=== PATIENT | female | born 1980 | race Caucasian/White ===

== ENCOUNTER 2023-03-23 05:17 | Emergency (ER) | payer OTHER, SELFPAY ==
[2023-03-23 05:26] VITALS: BP 140/88
--- NOTE | 2023-03-23 06:28 | ED.GENMED ---
History of Present Illness
General
Chief Complaint: Vomiting Blood
Source: patient
Exam Limitations: none
Time Seen by Provider: 03/23/23 06:21
Travel History
Have you had any contact with someone who has COVID-19?: No
Do you have any symptoms of coronavirus? Fever > 100 degrees, chills, cough, shortness of breath, sore throat, loss of taste or smell, muscle aches, or headache?: No
History of Present Illness
History of Present Illness:
See MDM
Past History
Past History
ED Past Medical History: Asthma, HTN and Other (Migraines, anxiety, morbid obesity ,rectal bleeding, Ulceration of the esophagus)
ED Past Surgical History: Gynecological (LEEP) and Orthopedic
Patient has exhibited threatening behavior?: No
Social History
Tobacco: Non-smoker
Alcohol: Occasional
Drug: None
Personal: Single
Living: with roommate (boyfriend)
Employment: Employed (bilingual medical receptionist for doctor office)
Family History
Family History: Other (Noncontributory)
Phy Exam
Physical Exam
Physical Exam:
See MDM
Course
Orders/Labs/Results
Orders:
Orders
03/23/23 06:27
0.9% Sodium Chloride 1000 ml [Nss] 1,000 ml IV BOLUS
Ondansetron Injectable [Zofran] 4 mg IV NOW STA
Pantoprazole [Protonix IV] 40 mg IV NOW STA
03/23/23 06:34
Sucralfate Suspension [Carafate Suspension] 1 gm PO NOW STA
03/23/23 06:58
Complete Blood Count/With Diff Urgent
Comprehensive Metabolic Panel Urgent
Abnormal Lab Results
03/23/23
06:58
WBC 11.1 H 10^3/uL
(4.8-10.8)
MCH 26.9 L pg
(27.0-31.0)
MCHC 32.1 L g/dL
(33.0-37.0)
MPV 10.9 H fL
(7.4-10.4)
Abs Immat Gran (auto) 0.1 H 10^3/uL
(0-0.05)
Absolute Neuts (auto) 8.8 H 10^3/uL
(1.4-6.5)
Absolute Monos (auto) 0.7 H 10^3/uL
(0.1-0.6)
Immature Gran % 0.6 H %
(0-0.5)
Neutrophils % 79.4 H %
(42.2-75.2)
Lymphocytes % 10.4 L %
(20.5-51.1)
Glucose 130 H mg/dl
(70-99)
03/23/23 06:58
03/23/23 06:58
Vital Signs
Initial and Last Documented VS:
Initial Vital Signs
Temp Pulse Resp BP Pulse Ox
98 F 90 18 140/88 98
03/23/23 05:26 03/23/23 05:26 03/23/23 05:26 03/23/23 05:26 03/23/23 05:26
Last Documented Vital Signs
Temp Pulse Resp BP Pulse Ox
98 F 90 18 111/69 95
03/23/23 05:26 03/23/23 05:26 03/23/23 05:26 03/23/23 08:00 03/23/23 08:45
MDM/Problems Addressed
Differential Diagnosis Includes:
HPI and MDM Narrative:
42-year-old female presenting with nausea and vomiting. She had 4 episodes of coffee-ground emesis. Patient states she is feeling better and would not, and other than the vomiting. She denies abdominal pain. She is not on blood thinners.
Patient states that she had an issue like this last year where she had endoscopy. Symptoms resolved with Protonix and Carafate. She is no longer on those medicines.
On exam, she is well-appearing and nontoxic. She is a soft nontender abdomen
I evaluated prior records. She had EGD last July showing evidence of esophagitis without active bleeding. Patient believes that her symptoms today are less intense than last year. She is trying to get a 'jumpstart' on her symptoms today. She
believes that she is able to go home. We had a long discussion about admission versus discharge. She acknowledges the concerns of going home. Although her symptoms are likely again related to esophagitis, I discussed alternative diagnoses such as
ulcerations and varices.
Physical exam
General: Well appearing and non-toxic
HEENT: protecting airway. Mildly dry mucous membranes
Neck: appears supple
CV: No evidence of cyanosis
Resp: No accessory muscle use
Abd: Non-distended. Soft and nontender
Extremities: No deformities
Neuro: alert
Psych: Normal affect
Skin: Intact
Problems Addressed including Acute and Chronic Conditions affecting care:
1. Hematemesis
Acuity: acute
Prognosis: stable
Details: Will restart Protonix and Carafate
Updates
Hemoglobin within normal limits. Patient has not had vomiting in the emergency department. Patient states she wants to go home. Will restart Protonix and Carafate. Discussed calling GI as an outpatient
Differential Diagnosis (but not limited to): Esophagitis, gastric ulcer, esophageal varices
Testing considered: CT abdomen/pelvis
Drug therapy (if applicable): OTC meds, please see d/c instruction regarding Rx drugs
Amount and/or Complexity of Data Reviewed
Clinical info obtained from: Patient
External data reviewed: Admitted last July for similar issues and had EGD showing esophagitis
Labs I independently reviewed (but not limited to): Hemoglobin normal
Radiology: N/A
Pulse Ox: not hypoxic
EKG independently reviewed: N/A
Red Lead Burner: N/A
Critical Care: N/A
Risk of Complication:
Social Determinants of health: Good social support
Discussed with other providers: N/A
Escalation of Care includes Admit/Obs: After being observed in the Emergency Department, pt stable for discharge.
Occasional wrong word or 'sound a like' substitutions may have occurred due to the inherent limitations of voice recognition software. Read the chart carefully and recognize, using context, where substitutions have occurred.
*Critical Care Note
Total Time (30-74mins, 75-104mins- exclusive of procedures): Not Applicable
ED Attending Note
-
Portions of this chart may have been created with voice recognition software.� Occasional wrong word or��sound alike� substitutions may have occurred due to the inherent limitations of voice recognition software.
Discharge Plan
Departure
Patient Disposition: Home (Routine Discharge)
Date of Disposition: 03/23/23
Time of Disposition: 09:06
Patient with high blood pressure during this ER visit?: No
Discharge Problem:
Hematemesis
Prescriptions:
New
pantoprazole [Protonix] 40 mg tablet,delayed release (DR/EC)
40 mg PO BID Qty: 60 0RF
sucralfate [Carafate] 1 gram tablet
1 g PO ACHS Qty: 60 0RF
No Action
albuterol sulfate 1 PUFF HFA aerosol inhaler
2 puff inhalation R [id number] PRN (Reason: sob)
Janumet XR 50-1,000 mg Tablet, Er Multiphase 24 Hr
2 tab PO DAILY
Patient Comments:
patient logged into her health portal for [employer]
Trintellix 10 mg Tablet
10 mg PO DAILY
Patient Comments:
patient logged into health portal for [employer]
lisinopril 5 mg Tablet
5 mg PO DAILY
Referrals:
Sammie Everett MD [Family Provider] -
Activity Restrictions/Additional Instructions:
Please restart the Protonix and Carafate. If symptoms persist, please return immediately. Call the gastroenterology office and let them know that your symptoms are recurred.
Interventions
Interventions:
*Risk Screen - Suicide Last Done: 03/23/23 05:26
*General Assessment Last Done: 03/23/23 06:52
*Neglect/Abuse Screening Last Done: 03/23/23 05:26
ED- Fall Risk Assessment Last Done: 03/23/23 06:52
*ED COVID-19 Vaccine History Last Done: 03/23/23 06:52
DC-Qsqrrz-Auhrqxkwhx Assessment Last Done: 03/23/23 06:52
ED- Cardiac Assessment Last Done: 03/23/23 06:52
ED- Pulmonary Assessment Last Done: 03/23/23 06:52
[2023-03-23 06:52] VITALS: BMI 48.2
[2023-03-23] MEDS: NSS 1000 IV (07:21)
[2023-03-23] MEDS: ZOFRAN 4 MG IV (07:22)
[2023-03-23] MEDS: PROTONIX IV 40 MG IV (07:22)
[2023-03-23] MEDS: CARAFATE SUSPENSION 1 GM PO (07:22)
[2023-03-23 07:26] LABS: % Basophils 0.7 % (0-2); % Eosinophils 2.8 % (0-6); % Immature Granulocytes 0.6 % (0-0.5); % Lymphocytes 10.4 % (20.5-51.1); % Monocytes 6.1 % (1.7-9.3); % Neutrophils 79.4 % (42.2-75.2); Absolute Basophils 0.1 10^3/uL (0-0.2); Absolute Eosinophils 0.3 10^3/uL (0-0.7); Absolute Immature Granulocytes 0.1 10^3/uL (0-0.05); Absolute Lymphocytes 1.2 10^3/uL (1.2-3.4); Absolute Monocytes 0.7 10^3/uL (0.1-0.6); Absolute Neutrophils 8.8 10^3/uL (1.4-6.5); Hematocrit 37.7 % (37.0-47.0); Hemoglobin 12.1 g/dL (12.0-16.0); Mean Corp Hgb Conc. 32.1 g/dL (33.0-37.0); Mean Corpuscular Hgb 26.9 pg (27.0-31.0); Mean Platelet Volume 10.9 fL (7.4-10.4); Nucleated Red Blood Cells % 0 %; Platelet Count 346 10^3/uL (130-400); Red Blood Cell Count 4.49 10^6/uL (4.20-5.40); Red Cell Dist. Width 13.7 % (11.5-14.5); White Blood Cell Count 11.1 10^3/uL (4.8-10.8)
[2023-03-23 07:43] LABS: ALT (SGPT) 32 U/L (0-35); AST (SGOT) 23 U/L (14-36); Alkaline Phosphatase 92 U/L (38-126); Blood Urea Nitrogen 14 mg/dl (7-17); Calcium 9.2 mg/dl (8.4-10.2); Carbon Dioxide 28 mmol/L (22-30); Chloride 100 mmol/L (98-107); Estimated Creatinine Clearance > 125 ml/min; Glucose 130 mg/dl (70-99); Potassium 4.3 mmol/L (3.5-5.1); Sodium 135 mmol/L (135-145); Total Bilirubin 0.4 mg/dl (0.2-1.3); Total Protein 6.4 g/dl (6.3-8.2); eGFR > 60.00
[2023-03-23 08:00] VITALS: BP 111/69
[2023-03-23 09:00] VITALS: BP 96/64
== END 2023-03-23 09:20 | disposition home or self-care (01) ==
LOC: EMR 05:17
PROVIDERS: EMERGENCY PHYSICIAN Student in an Organized Health Care Education/Training Program; FAMILY PHYSICIAN Family Medicine
DX: K92.0 Hematemesis (principal); J45.909 Unspecified asthma, uncomplicated; I10 Essential (primary) hypertension; F41.9 Anxiety disorder, unspecified; E66.01 Morbid (severe) obesity due to excess calories
CPT/HCPCS: 99283; 96374; 96375; 96361; 80053; 85025

== ENCOUNTER → 2023-04-30 08:45 | Outpatient (REF) | payer OTHER, SELFPAY | LOC: MRI 08:45 | PROVIDERS: ATTENDING PHYSICIAN Physician Assistant Medical; FAMILY PHYSICIAN Family Medicine | DX: C71.9 Malignant neoplasm of brain, unspecified (principal); G44.009 Cluster headache syndrome, unspecified, not intractable; Z98.890 Other specified postprocedural states | CPT/HCPCS: 70553; A9575 ==